=== PATIENT | female | born 1995 | race Caucasian/White ===

== ENCOUNTER 2016-06-27 20:13 | Emergency (ER) | payer OTHER ==
[~2016-06-27] VITALS: Ht 170.2 cm; Wt 67.9 kg
[~2016-06-27 20:13] MED LIST: ANUSOL HC,ANUCO25 MG PR; CLINDAMYCIN HC300 MG PO; COLACE100 MG PO; MIRALAX255 GM PO; NOHOMEMEDS; PREDNISONE50 MG PO; TRI-ESTARYLLA1 EACH PO
[2016-06-27 22:34] LABS: COLOR YELLOW ((YELLOW)); LEUKOCYTES NEGATIVE; NITRITE NEGATIVE
[2016-06-27 22:35] LABS: ADD MIUA? YES; BILIRUBIN NEGATIVE; BLOOD LARGE; GLUCOSE (STRIP) NEGATIVE; KETONES NEGATIVE; PROTEIN (STRIP) 30; UROBILINOGEN 0.2 MG/DL (0.2-1.0)
[2016-06-27 22:37] LABS: RED BLOOD CELLS 20-30 /HPF (0-5); WHITE BLOOD CELLS 0-5 /HPF (0-5)
[2016-06-27 22:38] LABS: BACTERIA 1+ /HPF; CASTS NONE SEEN /LPF; CRYSTALS NONE SEEN; EPITHELIAL CELLS 1+ /HPF; MUCUS 2+ /LPF
[2016-06-27] MEDS ORDERED: CIPRO500 MG PO (22:51)
[2016-06-27 23:08] VITALS: BP 00/00
[2016-06-30 13:25] LABS: CHLAMYDIA TRACHOMATIS NEGATIVE; NEISSERIA GONORRHOEAE NEGATIVE
== END 2016-06-27 23:24 | disposition home or self-care (01) ==
LOC: EME 20:13
PROVIDERS: Emergency Medicine
DX: N39.0 Urinary tract infection, site not specified (principal)
CPT/HCPCS: 81003; 87077; 87086; 87186; 87491; 87591; 99281; 99284

== ENCOUNTER 2017-01-28 21:52 | Emergency (ER) | payer OTHER ==
[~2017-01-28] VITALS: Ht 170.2 cm; Wt 62.1 kg
[~2017-01-28 21:52] MED LIST changes: +CIPRO500 MG PO
[2017-01-28] MEDS ORDERED: FLEXERIL10 MG PO (23:21)
[2017-01-28] MEDS ORDERED: NAPROSYN500 MG PO (23:21)
[2017-01-28 23:44] VITALS: BP 98/54
== END 2017-01-28 23:46 | disposition home or self-care (01) ==
LOC: EME 21:52
DX: M54.6 Pain in thoracic spine (principal); M62.838 Other muscle spasm; M41.9 Scoliosis, unspecified; Z88.0 Allergy status to penicillin
CPT/HCPCS: 99281; 99284